=== PATIENT | female | born 1955 | race Caucasian/White ===

== ENCOUNTER 2021-06-13 13:01 | Emergency (ER) | payer MEDICARE, OTHER ==
[~2021-06-13] VITALS: Ht 160 cm; Wt 68.0 kg
== END 2021-06-13 16:00 | disposition home or self-care (01) ==
LOC: ER1 13:01
DX: U07.1 COVID-19 (principal); I10 Essential (primary) hypertension; Z23 Encounter for immunization
CPT/HCPCS: 99283; M0245